=== PATIENT | female | born 1960 | race Caucasian/White ===

== ENCOUNTER → 2017-08-02 13:51 | Outpatient (CLI) | payer MEDICAID, SELFPAY ==
[2017-08-02 17:38] LABS: Absolute Neutrophil Count 4.1 X10^3/uL (2.0-7.7); Basophil# 0.01 X10^3/uL; Basophil% 0.2 % (0-1); Eosinophil# 0.07 X10^3/uL; Eosinophils% 1.1 % (0-5); Hematocrit 40.4 % (37-47); Hemoglobin 12.8 g/dl (12.0-15.0); Lymphocyte % 23.3 % (19-41); Mean Corp Hgb Conc 31.7 g/gl (32-36); Mean Corpuscular Hgb 29.4 pg (27.0-32.0); Mean Corpuscular Volume 92.7 fL (81-99); Mean Platelet Vol. 11.5 fl (6.2-12.0); Monocyte# 0.69 X10^3/uL; Monocyte% 10.7 % (0-10); Neutrophil # 4.14 X10^3/uL (2.7-7.7); Neutrophil % 64.4 % (47-70); Platelet Count 184 K/mm3 (150-450); RBC Distribution Width SD 47.8 fl (35.1-43.9); Red Blood Count 4.36 M/mm3 (4.2-5.4); White Blood Count 6.4 K/mm3 (4.4-11.0)
[2017-08-02 17:39] LABS: POSITIVE COUNT NO; POSITIVE DIFFERENTIAL NO; POSITIVE MORPHOLOGY NO
[2017-08-02 18:01] LABS: AST(SGOT) 19 U/L (15-37); Alanine Aminotransfer ALT/SGPT 30 U/L (13-56); Albumin, Serum 3.3 g/dL (3.2-5.0); Alkaline Phosphatase 55 U/L (45-117); Anion Gap 8 (5-15); BUN 13 mg/dL (7-18); BUN/Creat Ratio 13.3 RATIO (10-20); Calcium,Total 8.6 mg/dL (8.5-10.1); Chloride 103 mmol/L (98-107); Creatinine, Serum 0.98 mg/dL (0.55-1.02); EST Glomerular Filtration Rate 62 mL/min (>60); Est Glom Filt Rate - Afr Amer 75 mL/min (>60); Ferritin 29 ng/mL (8-252); Globulin 3.3 g/dL (2.2-4.2); Glucose 192 mg/dL (74-106); Iron 110 ug/dL (50-170); Iron Binding Capacity,Total 266 ug/dL (250-450); PERCENT IRON SATURATION 41.4 % (15.0-55.0); Potassium 3.6 mmol/L (3.5-5.1); Protein, Total 6.6 g/dL (6.4-8.2); Sodium Level 138 mmol/L (136-145); Thyroid Stim Hormone (TSH) 2.81 uIU/mL (0.358-3.74)
[2017-08-02 18:07] LABS: Hemoglobin A1c 6.3 % (4.2-6.3)
== END ==
PROVIDERS: Family Provider Family Medicine; PCP Family Medicine; Visit Provider Internal Medicine Endocrinology, Diabetes & Metabolism
DX: E10.65 Type 1 diabetes mellitus with hyperglycemia (principal); E61.1 Iron deficiency; E03.9 Hypothyroidism, unspecified
CPT/HCPCS: 36415; 80053; 82728; 83036; 83540; 83550; 84443; 85025

== ENCOUNTER → 2017-10-04 14:08 | Outpatient (CLI) | payer MEDICAID, SELFPAY ==
--- NOTE | 2017-10-04 14:18 | BD_ITS ---
STUDY: DUAL ENERGY X-RAY ABSORPTIOMETRY / DXA REASON FOR EXAM: Female, 57 years old. Bone density screening. TECHNIQUE: Bone Mineral Density (BMD) measurements of lumbar spine and bilateral hips were obtained. COMPARISON: None. FINDINGS: Lumbar Spine (L1-L4): g/cm2 (1.0) / T-score (-1.4) / Z-score (-0.4) Findings are suggestive of osteopenia with a moderate fracture risk. Right Femur Total: g/cm2 (0.863) / T-score (-1.1) / Z-score (-0.4) Right Femoral Neck: g/cm2 (0.705) / T-score (-2.4) / Z-score (-1.3) BD/Dexa Bone Density Study IMPRESSION: The patient is considered osteopenic as outlined below according to World [employer] Organization (WHO) criteria with a moderate fracture risk. Reference Information: The T-score is the number of standard deviations above or below the standard which is normal for young adults at their peak bone mineral density. The World Health Organization (WHO) interprets the T-scores as follows: Above -1 Normal bone density Between -1 and -2.5 Osteopenia Equal to / or below -2.5 Osteoporosis As a practical clinical guideline, osteopenia may be graded as follows: Mild -1 through -1.5 Moderate -1.6 through -2.0 Severe -2.1 through -2.4 The Z-score is the number of standard deviations above or below age-matched controls. A Z-score of less than -1.5 would be considered abnormal. References: 1. NIH Osteoporosis and Related Bone Diseases http://www.osteo.org 2. International Society for Clinical Densitometry http://www.iscd.org 3. National Osteoporosis Foundation http://www.nof.org Electronically Signed: Sherlyn Chavarria MD at 8:57 EDT , Service support ,
== END ==
PROVIDERS: Family Provider Family Medicine; PCP Family Medicine; Visit Provider Family Medicine
DX: Z78.0 Asymptomatic menopausal state (principal); S42.309A Unspecified fracture of shaft of humerus, unspecified arm, initial encounter for closed fracture; X58.XXXA Exposure to other specified factors, initial encounter; Y93.9 Activity, unspecified; Y92.9 Unspecified place or not applicable; Y99.9 Unspecified external cause status
CPT/HCPCS: 77080

== ENCOUNTER → 2017-10-31 10:39 | Outpatient (CLI) | payer MEDICAID, SELFPAY ==
[2017-10-31 12:43] LABS: ALB/GLOB Ratio 1.1 RATIO (0.9-2.4); AST(SGOT) 19 U/L (15-37); Alanine Aminotransfer ALT/SGPT 27 U/L (13-56); Albumin, Serum 3.6 g/dL (3.2-5.0); Alkaline Phosphatase 58 U/L (45-117); Anion Gap 10 (5-15); BUN 14 mg/dL (7-18); BUN/Creat Ratio 15.7 RATIO (10-20); Calcium,Total 8.8 mg/dL (8.5-10.1); Chloride 104 mmol/L (98-107); Cholesterol 189 mg/dL (200); Creatinine, Serum 0.89 mg/dL (0.55-1.02); EST Glomerular Filtration Rate 69 mL/min (>60); Est Glom Filt Rate - Afr Amer 84 mL/min (>60); Globulin 3.4 g/dL (2.2-4.2); Glucose 135 mg/dL (74-106); High Density Lipoprotein 56 mg/dL; Potassium 4.2 mmol/L (3.5-5.1); Sodium Level 142 mmol/L (136-145); Thyroid Stim Hormone (TSH) 5.45 uIU/mL (0.358-3.74); Triglycerides 74 mg/dL; Very Low Density Lipoprotein 15 mg/dL (5-40)
== END ==
PROVIDERS: Family Provider Family Medicine; PCP Family Medicine; Visit Provider Internal Medicine Endocrinology, Diabetes & Metabolism
DX: E10.65 Type 1 diabetes mellitus with hyperglycemia (principal)
CPT/HCPCS: 36415; 80053; 80061; 83036; 84443

== ENCOUNTER → 2017-12-06 13:47 | Outpatient (CLI) | payer MEDICAID, SELFPAY ==
--- NOTE | 2017-12-07 08:09 | LEAS ---
Arterial Study - Arterial Study Arterial Study: This is a 57-year-old female with a history of coronary artery disease, hypertension, diabetes mellitus, cerebrovascular accident, and peripheral arterial occlusive disease. The patient was brought to the noninvasive vascular laboratory at this time for the purpose of bilateral noninvasive lower extremity arterial assessment. Doppler signal assessment was used to evaluate the pulses at ankle level bilaterally. On the right, the posterior tibial pulse was monophasic. The right dorsalis pedis pulse was absent. On the left, the posterior tibial and dorsalis pedis pulses were biphasic. Segmental limb pressures were obtained bilaterally. The right ankle pressure, as determined by posterior tibial pulse, was measured at 74 mmHg. The right ankle pressure, as determined by dorsalis pedis pulse, was not determined. The right digital pressure was measured at 60 mmHg. The left ankle pressure, as determined by posterior tibial pulse, was measured at 79 mmHg. The left ankle pressure, as determined by dorsalis pedis pulse, was measured at 84 mmHg. The left digital pressure was measured at 71 mmHg. Pulse-volume recordings were obtained bilaterally. Waveform amplitudes appeared to be somewhat diminished at ankle and digital levels bilaterally. Resting ankle-brachial indices were calculated bilaterally. The resting right ankle-brachial index was calculated to be 0.52. The resting left ankle-brachial index was calculated to be 0.59. Digital-brachial indices were calculated bilaterally. The right digital-brachial index was calculated to be 0.42. The left digital-brachial index was calculated to be 0.50. Impression: Based upon the findings of this resting noninvasive lower extremity arterial study, there is evidence of moderate arterial occlusive disease in the lower extremities bilaterally. The degree of occlusive disease appears to be more severe in the right lower extremity. The right posterior tibial pulse was monophasic. The right dorsalis pedis pulses absent, suggesting moderate to severe arterial occlusive disease in the right lower extremity. Biphasic waveforms are noted at ankle level on the left. Of note, ankle-brachial indices and digital-brachial indices are moderately diminished bilaterally, consistent with moderate impairment of arterial flow at ankle and digital levels bilaterally. Based upon the findings of this study, the occlusive process appears to be due to arterial inflow disease, suggesting the occlusive process to be at the aorto-iliac level or the ilio-femoral level. In this regard, clinical correlation is advised.
--- NOTE | 2017-12-07 08:18 | LEAS_ITS ---
Arterial Study - Arterial Study Arterial Study: This is a 57-year-old female with a history of coronary artery disease, hypertension, diabetes mellitus, cerebrovascular accident, and peripheral arterial occlusive disease. The patient was brought to the noninvasive vascular laboratory at this time for the purpose of bilateral noninvasive lower extremity arterial assessment. Doppler signal assessment was used to evaluate the pulses at ankle level bilaterally. On the right, the posterior tibial pulse was monophasic. The right dorsalis pedis pulse was absent. On the left, the posterior tibial and dorsalis pedis pulses were biphasic. Segmental limb pressures were obtained bilaterally. The right ankle pressure, as determined by posterior tibial pulse, was measured at 74 mmHg. The right ankle pressure, as determined by dorsalis pedis pulse, was not determined. The right digital pressure was measured at 60 mmHg. The left ankle pressure, as determined by posterior tibial pulse, was measured at 79 mmHg. The left ankle pressure, as determined by dorsalis pedis pulse, was measured at 84 mmHg. The left digital pressure was measured at 71 mmHg. Pulse-volume recordings were obtained bilaterally. Waveform amplitudes appeared to be somewhat diminished at ankle and digital levels bilaterally. Resting ankle-brachial indices were calculated bilaterally. The resting right ankle-brachial index was calculated to be 0.52. The resting left ankle- brachial index was calculated to be 0.59. Digital-brachial indices were calculated bilaterally. The right digital- brachial index was calculated to be 0.42. The left digital-brachial index was calculated to be 0.50. Impression: Based upon the findings of this resting noninvasive lower extremity arterial study, there is evidence of moderate arterial occlusive disease in the lower extremities bilaterally. The degree of occlusive disease appears to be more severe in the right lower extremity. The right posterior tibial pulse was monophasic. The right dorsalis pedis pulses absent, suggesting moderate to severe arterial occlusive disease in the right lower extremity. Biphasic waveforms are noted at ankle level on the left. Of note, ankle-brachial indices and digital-brachial indices are moderately diminished bilaterally, consistent with moderate impairment of arterial flow at ankle and digital levels bilaterally. Based upon the findings of this study, the occlusive process appears to be due to arterial inflow disease, suggesting the occlusive process to be at the aorto-iliac level or the ilio-femoral level. In this regard, clinical correlation is advised.
== END ==
PROVIDERS: Family Provider Family Medicine; PCP Family Medicine; Visit Provider Family Medicine
DX: I73.9 Peripheral vascular disease, unspecified (principal)
CPT/HCPCS: 93922

== ENCOUNTER → 2018-01-23 07:27 | Outpatient (CLI) | payer MEDICAID, SELFPAY ==
--- NOTE | 2018-01-25 08:13 | LEAS ---
Arterial Study - Arterial Study Arterial Study: Date of scan 01/23/[address] Castañeda History patient with bilateral leg claudication. Interpretation: Right lower extremity that show pulsatile flow noted down at the ankle appears to have a biphasic waveformsignal noted with the DP. NADIA the PT 0.56. Digit brachial index 0.44. Left lower extremity in his appears to be more of a biphasic flow noted at the ankle with an NADIA of the PT 0.74 DP 0.71. Digit brachial index 0.5. Impression: 1. Moderate arterial occlusive disease in the right lower extremity and NADIA 0.56 and some small vessel disease with the digit brachial index 0.44. 2. Left lower extremity moderate arterial occlusive disease with an NADIA 0.74. And a digit brachial index 0.50. Further evaluation as clinically warranted
== END ==
PROVIDERS: Family Provider Family Medicine; PCP Family Medicine; Visit Provider Surgery Vascular Surgery
DX: I70.0 Atherosclerosis of aorta (principal); I77.1 Stricture of artery; I70.212 Atherosclerosis of native arteries of extremities with intermittent claudication, left leg; E10.65 Type 1 diabetes mellitus with hyperglycemia; I70.90 Unspecified atherosclerosis; M79.604 Pain in right leg; M79.605 Pain in left leg; M79.89 Other specified soft tissue disorders
CPT/HCPCS: 36415; 80053; 82043; 82570; 83036; 84443; 93922; 93926; 93971; 93978

== ENCOUNTER → 2018-01-23 09:18 | Outpatient (CLI) | payer MEDICAID, SELFPAY ==
[2018-01-23 12:57] LABS: Microalbumin,Random Urine < 5.0 mg/L (NO RANGE EST.)
[2018-01-23 13:02] LABS: Hemoglobin A1c 5.9 % (4.2-6.3)
[2018-01-23 13:25] LABS: ALB/GLOB Ratio 0.9 RATIO (0.9-2.4); AST(SGOT) 17 U/L (15-37); Alanine Aminotransfer ALT/SGPT 26 U/L (13-56); Albumin, Serum 3.5 g/dL (3.2-5.0); Alkaline Phosphatase 55 U/L (45-117); Anion Gap 10 (5-15); BUN 13 mg/dL (7-18); Calcium,Total 8.7 mg/dL (8.5-10.1); Chloride 104 mmol/L (98-107); EST Glomerular Filtration Rate 61 mL/min (>60); Est Glom Filt Rate - Afr Amer 74 mL/min (>60); Globulin 3.7 g/dL (2.2-4.2); Glucose 137 mg/dL (74-106); Potassium 3.9 mmol/L (3.5-5.1); Protein, Total 7.2 g/dL (6.4-8.2); Sodium Level 140 mmol/L (136-145); Thyroid Stim Hormone (TSH) 3.24 uIU/mL (0.358-3.74)
== END ==
PROVIDERS: Internal Medicine Endocrinology, Diabetes & Metabolism; Family Provider Family Medicine; PCP Family Medicine; Visit Provider Family Medicine
DX: I73.9 Peripheral vascular disease, unspecified (principal); I70.90 Unspecified atherosclerosis; E10.65 Type 1 diabetes mellitus with hyperglycemia
CPT/HCPCS: 36415; 80053; 82043; 82570; 83036; 84443

== ENCOUNTER → 2018-02-14 13:11 | Outpatient (CLI) | payer MEDICAID, SELFPAY | PROVIDERS: Family Provider Family Medicine; PCP Family Medicine; Visit Provider Surgery Vascular Surgery | DX: I70.213 Atherosclerosis of native arteries of extremities with intermittent claudication, bilateral legs (principal) | CPT/HCPCS: 75635; Q9967 ==

== ENCOUNTER → 2018-04-20 10:42 | Outpatient (CLI) | payer MEDICAID, SELFPAY ==
[2018-04-20 13:22] LABS: Hemoglobin A1c 5.9 % (4.2-6.3)
[2018-04-20 13:37] LABS: ALB/GLOB Ratio 1.1 RATIO (0.9-2.4); AST(SGOT) 11 U/L (15-37); Alanine Aminotransfer ALT/SGPT 23 U/L (13-56); Albumin, Serum 3.5 g/dL (3.2-5.0); Alkaline Phosphatase 59 U/L (45-117); Anion Gap 8 (5-15); BUN 20 mg/dL (7-18); BUN/Creat Ratio 21.6 RATIO (10-20); Calcium,Total 8.5 mg/dL (8.5-10.1); Chloride 103 mmol/L (98-107); Cholesterol 150 mg/dL (200); Creatinine, Serum 0.93 mg/dL (0.55-1.02); EST Glomerular Filtration Rate 66 mL/min (>60); Est Glom Filt Rate - Afr Amer 80 mL/min (>60); Globulin 3.2 g/dL (2.2-4.2); Glucose 99 mg/dL (74-106); High Density Lipoprotein 59 mg/dL; Potassium 4.1 mmol/L (3.5-5.1); Protein, Total 6.7 g/dL (6.4-8.2); Sodium Level 141 mmol/L (136-145); Triglycerides 63 mg/dL; Very Low Density Lipoprotein 13 mg/dL (5-40)
== END ==
PROVIDERS: Family Provider Family Medicine; PCP Family Medicine; Visit Provider Internal Medicine Endocrinology, Diabetes & Metabolism
DX: E10.65 Type 1 diabetes mellitus with hyperglycemia (principal)
CPT/HCPCS: 36415; 80053; 80061; 83036; 84443

== ENCOUNTER → 2018-04-28 11:50 | Outpatient (CLI) | payer MEDICAID, SELFPAY ==
--- NOTE | 2018-04-28 11:53 | BI_ITS ---
MAMMOGRAPHY - BILATERAL DIAGNOSTIC REASON FOR EXAM: Female, 57 years old. Palpable abnormality at 11:00 position of the right breast. PERTINENT HISTORY: Non-contributory. TECHNIQUE: Digital bilateral breast miki (3D mammographic acquisition) in the CC and MLO projections. 2-D mediolateral oblique (MLO) and craniocaudad (CC) views of both breasts were obtained. CAD: Full Field Digital Mammography with Computer Added Detection was performed. COMPARISON: No comparison mammograms available at this time. If any prior films become available, an addendum to this report can be generated. FINDINGS: Breast Composition: The breasts are heterogeneously dense, which may obscure small masses. There are no dominant masses or suspicious calcifications. No other significant abnormalities are identified. BI/DIAG MAMM W/CAD, BILAT IMPRESSION: Negative diagnostic mammogram. With the patient's history of a papilloma and mildly in the right breast, correlation with ultrasound is recommended. ASSESSMENT CATEGORY: BIRADS Category 0: Incomplete. Need additional imaging evaluation. A letter regarding these results will be sent to the patient by the facility within 30 days. Approximately 10% of breast cancers are not detected by mammography. A normal mammogram should not delay biopsy of a clinically suspicious abnormality. Electronically Signed: Walker Ceballos MD at 14:24 EST Tel [phone], Service support ,
== END ==
PROVIDERS: Family Provider Family Medicine; PCP Family Medicine; Referring Provider Family Medicine; Visit Provider Family Medicine
DX: N63.11 Unspecified lump in the right breast, upper outer quadrant (principal)
CPT/HCPCS: 77062; 77066; G0279

== ENCOUNTER → 2018-05-03 09:45 | Outpatient (CLI) | payer MEDICAID, SELFPAY ==
--- NOTE | 2018-05-03 09:47 | US_ITS ---
STUDY: ULTRASOUND BREAST - RIGHT REASON FOR EXAM: Female, 57 years old. Palpable lump in the right breast. TECHNIQUE: Axial and longitudinal images of the RIGHT breast were performed with a high resolution ultrasound transducer. COMPARISON: Comparison is made with prior mammogram dated April 28, 2018. FINDINGS: RIGHT Breast: There is a 4 mm x 3 mm x 4 mm cyst at the 11:00 position breast at 2 cm from the nipple. There is also evidence of a focally dilated duct at the 10:00 position breast at 2 cm from the nipple. US/Breast Limited Unilateral IMPRESSION: 4 mm x 3 mm x 4 mm cyst at the 11:00 position of the breast at 2 some some the nipple. Dilated ducts. ASSESSMENT CATEGORY: BIRADS Category 2: Benign. A letter regarding these results will be sent to the patient by the facility within 30 days. Electronically Signed: Walker Ceballos MD at 11:21 EST Tel [phone], Service support ,
== END ==
PROVIDERS: Family Provider Family Medicine; PCP Family Medicine; Referring Provider Family Medicine; Visit Provider Family Medicine
DX: R92.8 Other abnormal and inconclusive findings on diagnostic imaging of breast (principal); N63.10 Unspecified lump in the right breast, unspecified quadrant
CPT/HCPCS: 76642

== ENCOUNTER → 2018-09-05 08:43 | Outpatient (CLI) | payer MEDICAID, SELFPAY ==
[2018-05-03 12:51] VITALS: BMI 29.8
--- NOTE | 2018-09-05 08:47 | ART_ITS ---
Reason For Study: Atherosclerosis Procedure A bilateral lower extremity continuous wave Doppler with analog waveform analysis and ankle brachial indexes. Left Segmental Pressures Left brachial= 122mmHg. Left posterior tibial artery = 163mmHg. Left dorsalis pedis artery = 149mmHg. Left digit = 111 mmHg. The left dorsalis pedis waveforms are biphasic. The left posterior tibial artery waveforms are triphasic. Right Segmental Pressures Right brachial= 138mmHg. Right posterior tibial artery = 138mmHg. Right dorsalis pedis artery = 122mmHg. Right digit = 102 mmHg. The right dorsalis pedis waveforms are biphasic. The right posterior tibial artery waveforms are triphasic. Indices The right ankle brachial index by the dorsalis pedis is .88. The right ankle brachial index by the posterior tibial artery is 1.0. The right digital-brachial index is .74. The left ankle brachial index by the dorsalis pedis is 1.1. The left ankle brachial index by the posterior tibial artery is 1.2. The left digital-brachial index is .80. Interpretation Summary 1. bilaterl no significant occlussive disease noted at rest with triphasic flow and rex 1.0/1.1. Ordering Physician: Jed Castañeda Referring Physician: Jed Castañeda Performed By: Maryjane Woody [facility]
--- NOTE | 2018-09-05 08:47 | AAVD_ITS ---
Reason For Study: Aorto-iliac stenosis Aorta Measurements Aorta Doppler Measurements Proximal aorta measures1.6 x 1.6cm. in cross- Peak systolic flow velocities within the proximal sectional axis. aorta measure 82.1 cm/sec. Proximal aorta measures1.5cm. in longitudinal Peak systolic flow velocities within the mid aorta axis. measure 114 cm/sec. Mid aorta measures1.1 x 1.1cm. in cross-sectional Peak systolic flow velocities within the distal axis. aorta measure 110 cm/sec. Mid aorta measures1.0cm. in longitudinal axis. Distal aorta measures1.1 x 1.1cm. in cross- sectional axis. Distal aorta measures1.1cm. in longitudinal axis. Left Iliac Artery Left iliac artery measures .76 cm. in the longitudinal axis. Left iliac artery measures .72 x .66 cm. in the cross-sectional axis. Peak systolic velocity in the left iliac artery measures 142.0 cm/sec. Right Iliac Artery Right iliac artery measures .66 cm. in the longitudinal axis. Right iliac artery measures .69 x .75 cm. in the cross-sectional axis. Peak systolic velocity in the right iliac artery measures 92.1 cm/sec. Procedure Aorta IVC Iliac vasculature or bypass grafts [id number]. Exam performed in department. Interpretation Summary 1. No evidence aortoiliac aneurysm or stenosis. Ordering Physician: Jed Castañeda Referring Physician: Jed Castañeda Performed By: Maryjane Woody RVT
== END ==
PROVIDERS: Family Provider Family Medicine; PCP Family Medicine; Referring Provider Surgery Vascular Surgery; Visit Provider Surgery Vascular Surgery
DX: I70.213 Atherosclerosis of native arteries of extremities with intermittent claudication, bilateral legs (principal); I11.9 Hypertensive heart disease without heart failure; E07.9 Disorder of thyroid, unspecified; D64.9 Anemia, unspecified; E78.70 Disorder of bile acid and cholesterol metabolism, unspecified; F41.9 Anxiety disorder, unspecified; I25.2 Old myocardial infarction; Z86.73 Personal history of transient ischemic attack (TIA), and cerebral infarction without residual deficits
CPT/HCPCS: 93922; 93978

== ENCOUNTER → 2018-10-10 09:49 | Outpatient (CLI) | payer MEDICAID, SELFPAY ==
[2018-05-03 12:51] VITALS: BMI 29.8
[2018-10-10 12:40] LABS: ALB/GLOB Ratio 1.2 RATIO (0.9-2.4); AST(SGOT) 14 U/L (15-37); Alanine Aminotransfer ALT/SGPT 21 U/L (13-56); Albumin, Serum 3.6 g/dL (3.2-5.0); Alkaline Phosphatase 70 U/L (45-117); Anion Gap 6 (5-15); BUN 19 mg/dL (7-18); Calcium,Total 8.6 mg/dL (8.5-10.1); Chloride 105 mmol/L (98-107); EST Glomerular Filtration Rate 61 mL/min (>60); Est Glom Filt Rate - Afr Amer 74 mL/min (>60); Glucose 123 mg/dL (74-106); Potassium 3.9 mmol/L (3.5-5.1); Protein, Total 6.6 g/dL (6.4-8.2); Sodium Level 139 mmol/L (136-145); T4 Free Direct 1.25 ng/dL (0.76-1.46); Thyroid Stim Hormone (TSH) 0.67 uIU/mL (0.358-3.74)
[2018-10-10 14:05] LABS: Hemoglobin A1c 5.9 % (4.2-6.3)
== END ==
PROVIDERS: Family Provider Family Medicine; PCP Family Medicine; Referring Provider Family Medicine; Visit Provider Internal Medicine Endocrinology, Diabetes & Metabolism
DX: E03.9 Hypothyroidism, unspecified (principal); E10.65 Type 1 diabetes mellitus with hyperglycemia
CPT/HCPCS: 36415; 80053; 83036; 84439; 84443

== ENCOUNTER → 2019-02-22 10:30 | Outpatient (CLI) | payer MEDICAID, SELFPAY ==
[2018-05-03 12:51] VITALS: BMI 29.8
[2019-02-22 13:07] LABS: ALB/GLOB Ratio 1.1 RATIO (0.9-2.4); AST(SGOT) 17 U/L (15-37); Alanine Aminotransfer ALT/SGPT 27 U/L (13-56); Albumin, Serum 3.4 g/dL (3.2-5.0); Alkaline Phosphatase 58 U/L (45-117); Anion Gap 6 (5-15); BUN 17 mg/dL (7-18); BUN/Creat Ratio 16.8 RATIO (10-20); Calcium,Total 8.6 mg/dL (8.5-10.1); Chloride 109 mmol/L (98-107); Cholesterol 156 mg/dL (200); Creatinine, Serum 1.01 mg/dL (0.55-1.02); EST Glomerular Filtration Rate 60 mL/min (>60); Est Glom Filt Rate - Afr Amer 72 mL/min (>60); Globulin 3.2 g/dL (2.2-4.2); Glucose 137 mg/dL (74-106); High Density Lipoprotein 66 mg/dL; Potassium 4.9 mmol/L (3.5-5.1); Protein, Total 6.6 g/dL (6.4-8.2); Sodium Level 143 mmol/L (136-145); T4 Free Direct 1.38 ng/dL (0.76-1.46); Thyroid Stim Hormone (TSH) 0.58 uIU/mL (0.358-3.74); Triglycerides 60 mg/dL; Very Low Density Lipoprotein 12 mg/dL (5-40)
== END ==
PROVIDERS: Family Provider Family Medicine; PCP Family Medicine; Referring Provider Family Medicine; Visit Provider Internal Medicine Endocrinology, Diabetes & Metabolism
DX: E10.65 Type 1 diabetes mellitus with hyperglycemia (principal); E03.9 Hypothyroidism, unspecified
CPT/HCPCS: 36415; 80053; 80061; 83036; 84439; 84443

== ENCOUNTER → 2019-05-01 12:47 | Outpatient (CLI) | payer MEDICAID, SELFPAY ==
[2018-05-03 12:51] VITALS: BMI 29.8
--- NOTE | 2019-05-01 12:51 | RAD_ITS ---
STUDY: X-RAY - PARANASAL SINUSES REASON FOR EXAM: Female, 58 years old. Sinus pain TECHNIQUE: 3 view(s) of the paranasal sinuses were obtained. COMPARISON: None. FINDINGS: Normal visualized frontal, maxillary, ethmoidal and sphenoid sinuses. Normal visualized facial bones. The soft tissue structures are unremarkable. RAD/Sinuses min 3 Views IMPRESSION: Normal x-rays of the paranasal sinuses. Electronically Signed: Lamin Reich MD at 17:05 EST , Service support ,
[2019-05-01 13:55] LABS: Absolute Lymphocyte Count 1.18 X10^3/uL (0.83-4.51); Absolute Neutrophil Count 4.3 X10^3/uL (2.0-7.7); Basophil# 0.02 X10^3/uL; Basophil% 0.3 % (0-1); Eosinophil# 0.12 X10^3/uL; Eosinophils% 1.9 % (0-5); Hematocrit 40.2 % (37-47); Lymphocyte # 1.18 X10^3/ul (4.0); Lymphocyte % 18.5 % (19-41); Mean Corp Hgb Conc 32.3 g/dL (32-36); Mean Corpuscular Hgb 30.7 pg (27.0-32.0); Mean Platelet Vol. 10.6 fl (6.2-12.0); Monocyte# 0.72 X10^3/uL; Monocyte% 11.3 % (0-10); NRBC Flagged by Analyzer 0 % (0-5); Neutrophil # 4.31 X10^3/uL (2.7-7.7); Neutrophil % 67.5 % (47-70); Platelet Count 223 K/mm3 (150-450); RBC Distribution Width CV 12.9 % (11.6-14.6); RBC Distribution Width SD 44.9 fl (35.1-43.9); Red Blood Count 4.23 M/mm3 (4.2-5.4); White Blood Count 6.4 K/mm3 (4.4-11.0)
[2019-05-01 14:02] LABS: Erythrocyte Sedimentation Rate 3 mm/hr (0-30)
[2019-05-01 14:12] LABS: ALB/GLOB Ratio 1.1 RATIO (0.9-2.4); AST(SGOT) 17 U/L (15-37); Alanine Aminotransfer ALT/SGPT 30 U/L (13-56); Albumin, Serum 3.7 g/dL (3.2-5.0); Alkaline Phosphatase 64 U/L (45-117); Anion Gap 7 (5-15); BUN 18 mg/dL (7-18); BUN/Creat Ratio 18.4 RATIO (10-20); Calcium,Total 8.5 mg/dL (8.5-10.1); Chloride 106 mmol/L (98-107); Creatinine, Serum 0.98 mg/dL (0.55-1.02); EST Glomerular Filtration Rate 62 mL/min (>60); Est Glom Filt Rate - Afr Amer 75 mL/min (>60); Globulin 3.4 g/dL (2.2-4.2); Glucose 118 mg/dL (74-106); Potassium 3.7 mmol/L (3.5-5.1); Protein, Total 7.1 g/dL (6.4-8.2); Sodium Level 141 mmol/L (136-145); Thyroid Stim Hormone (TSH) 0.57 uIU/mL (0.358-3.74)
== END ==
PROVIDERS: Family Provider Family Medicine; PCP Family Medicine; Referring Provider Family Medicine; Visit Provider Family Medicine
DX: J32.9 Chronic sinusitis, unspecified (principal); R53.81 Other malaise; R53.83 Other fatigue
CPT/HCPCS: 36415; 70220; 80053; 83036; 84443; 85025; 85652

== ENCOUNTER → 2019-05-08 11:39 | Outpatient (CLI) | payer MEDICAID, SELFPAY ==
[2018-05-03 12:51] VITALS: BMI 29.8
[2019-05-08 16:02] LABS: Internal QC Validated? YES +Cl - CLEAR BKGD; Monotest Negative (Negative)
[2019-05-08 16:10] LABS: ALB/GLOB Ratio 1.1 RATIO (0.9-2.4); AST(SGOT) 14 U/L (15-37); Alanine Aminotransfer ALT/SGPT 28 U/L (13-56); Albumin, Serum 3.7 g/dL (3.2-5.0); Alkaline Phosphatase 72 U/L (45-117); Anion Gap 8 (5-15); BUN 16 mg/dL (7-18); BUN/Creat Ratio 14.4 RATIO (10-20); Chloride 102 mmol/L (98-107); Creatinine, Serum 1.11 mg/dL (0.55-1.02); EST Glomerular Filtration Rate 54 mL/min (>60); Est Glom Filt Rate - Afr Amer 65 mL/min (>60); Globulin 3.3 g/dL (2.2-4.2); Glucose 156 mg/dL (74-106); Potassium 4.1 mmol/L (3.5-5.1); Sodium Level 137 mmol/L (136-145)
[2019-05-08 17:03] LABS: Erythrocyte Sedimentation Rate 4 mm/hr (0-30)
[2019-05-13 13:01] LABS: EBV Acute VCA IgM < 36.0 U/mL (0.0-35.9); EBV Early Antigen IgG <9.0 U/mL (0.0-8.9); EBV Nuclear Antigen IgG < 18.0 U/mL (0.0-17.9); Immunoglobulin E 3 IU/mL (6-495)
== END ==
PROVIDERS: Family Provider Family Medicine; PCP Family Medicine; Referring Provider Family Medicine; Visit Provider Family Medicine
DX: R53.83 Other fatigue (principal)
CPT/HCPCS: 36415; 80053; 82785; 85652; 86308; 86663; 86664; 86665

== ENCOUNTER → 2019-06-08 12:38 | Outpatient (CLI) | payer MEDICAID, SELFPAY ==
[2018-05-03 12:51] VITALS: BMI 29.8
--- NOTE | 2019-06-08 12:41 | ART_ITS ---
Reason For Study: Aortoiliac occlusive disease Procedure A bilateral lower extremity continuous wave Doppler with analog waveform analysis and ankle brachial indexes. Left Segmental Pressures Left brachial= 163mmHg. Left posterior tibial artery = 187mmHg. Left dorsalis pedis artery = 175mmHg. Left digit = 129 mmHg. Right Segmental Pressures Right brachial= 167mmHg. Right posterior tibial artery = 116mmHg. Right dorsalis pedis artery = 86mmHg. Right digit = 82 mmHg. Indices The right ankle brachial index by the posterior tibial artery is 0.69. The right ankle brachial index by the dorsalis pedis is 0.51. The right digital-brachial index is 0.49. The left ankle brachial index by the posterior tibial artery is 1.12. The left ankle brachial index by the dorsalis pedis is 1.05. The left digital-brachial index is 0.77. Interpretation Summary 1. right moderate disease wiht biphasic flow and NADIA 0.69 2. Left normal at rest with triphasic flow and NADIA 1.12. Ordering Physician: Jed Castañeda Referring Physician: Jed Castañeda Performed By: Jessica Ramey RDCS/RVT
== END ==
PROVIDERS: Family Provider Family Medicine; PCP Family Medicine; Referring Provider Surgery Vascular Surgery; Visit Provider Surgery Vascular Surgery
DX: I70.213 Atherosclerosis of native arteries of extremities with intermittent claudication, bilateral legs (principal); I74.09 Other arterial embolism and thrombosis of abdominal aorta; I11.9 Hypertensive heart disease without heart failure; I25.2 Old myocardial infarction; E07.9 Disorder of thyroid, unspecified; E78.70 Disorder of bile acid and cholesterol metabolism, unspecified; F41.9 Anxiety disorder, unspecified; D64.9 Anemia, unspecified; Z86.73 Personal history of transient ischemic attack (TIA), and cerebral infarction without residual deficits
CPT/HCPCS: 93922

== ENCOUNTER → 2019-10-31 12:14 | Outpatient (CLI) | payer MEDICAID, SELFPAY ==
[2018-05-03 12:51] VITALS: BMI 29.8
--- NOTE | 2019-10-31 12:16 | BI_ITS ---
MAMMOGRAPHY - BILATERAL SCREENING REASON FOR EXAM: Female, 59 years old. Routine annual screening examination. PERTINENT HISTORY: Non-contributory. TECHNIQUE: Digital bilateral breast kaci (3D mammographic acquisition) in the CC and MLO projections. 2-D mediolateral oblique (MLO) and craniocaudad (CC) views of both breasts were obtained. CAD: Full Field Digital Mammography with Computer Added Detection was performed. COMPARISON: Comparison is made with prior examination dated April 28, 2018. FINDINGS: Breast Composition: The breasts are heterogeneously dense, which may obscure small masses. There are no dominant masses or suspicious calcifications. Stable scattered calcifications in both breasts without evidence of cluster. No other significant abnormalities are identified. There has been no significant change since the prior study. BI/SCREEN MAMM (CAD) W/KACI BILAT IMPRESSION: Stable bilateral screening mammogram. Yearly follow-up mammogram recommended. (A) ASSESSMENT CATEGORY: BIRADS Category 2: Benign. A letter regarding these results will be sent to the patient by the facility within 30 days. Approximately 10% of breast cancers are not detected by mammography. A normal mammogram should not delay biopsy of a clinically suspicious abnormality. [id number] Electronically Signed: Walker Ceballos, at 9:59 EDT , Service support ,
== END ==
PROVIDERS: PCP Family Medicine; Referring Provider Family Medicine; Visit Provider Family Medicine
DX: Z12.31 Encounter for screening mammogram for malignant neoplasm of breast (principal)
CPT/HCPCS: 77063; 77067

== ENCOUNTER → 2019-11-12 10:19 | Outpatient (CLI) | payer MEDICAID, SELFPAY ==
[2019-11-12 10:11] VITALS: BMI 29.8
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
== END ==
PROVIDERS: PCP Family Medicine; Referring Provider Orthopaedic Surgery; Visit Provider Orthopaedic Surgery
DX: M25.511 Pain in right shoulder (principal)
CPT/HCPCS: 73030

== ENCOUNTER → 2019-12-10 13:44 | Outpatient (CLI) | payer MEDICAID, SELFPAY ==
[2019-12-10 07:49] VITALS: BMI 29.8
--- NOTE | 2019-12-10 13:45 | RAD_ITS ---
STUDY: X-RAY - RIGHT SHOULDER REASON FOR EXAM: Female, 59 years old. FX FOLLOW UP X 1 MONTH TECHNIQUE: 3 view(s) of the shoulder. COMPARISON: None. FINDINGS: Normal glenohumeral articulation. Normal acromioclavicular joint. Normal acromion. Healing impacted fracture the humeral neck with callus formation. The soft tissue structures are unremarkable. Normal visualized pulmonary apex. RAD/Shoulder min 2 Views IMPRESSION: Healing impacted humeral neck fracture. Electronically Signed: Sae Courtney MD at 14:29 EDT Tel , Service support ,
== END ==
PROVIDERS: PCP Family Medicine; Referring Provider Orthopaedic Surgery; Visit Provider Orthopaedic Surgery
DX: S42.309A Unspecified fracture of shaft of humerus, unspecified arm, initial encounter for closed fracture (principal); X58.XXXA Exposure to other specified factors, initial encounter; Y93.9 Activity, unspecified; Y92.9 Unspecified place or not applicable; Y99.9 Unspecified external cause status
CPT/HCPCS: 73030

== ENCOUNTER → 2020-01-04 10:27 | Outpatient (CLI) | payer MEDICAID, SELFPAY ==
[2019-12-10 07:49] VITALS: BMI 29.8
[2020-01-04 12:23] LABS: Absolute Neutrophil Count 3.3 X10^3/uL (2.0-7.7); Hematocrit 41.3 % (37-47); Hemoglobin 13.2 g/dL (12.0-15.0); Lymphocyte % 25.1 % (19-41); Mean Corpuscular Hgb 30.1 pg (27.0-32.0); Mean Corpuscular Volume 94.3 fL (81-99); Mean Platelet Vol. 11.5 fl (6.2-12.0); Monocyte# 0.59 X10^3/uL; Monocyte% 11.4 % (0-10); NRBC Flagged by Analyzer 0 % (0-5); Neutrophil # 3.25 X10^3/uL (2.7-7.7); Neutrophil % 62.9 % (47-70); Platelet Count 177 K/mm3 (150-450); RBC Distribution Width CV 12.5 % (11.6-14.6); RBC Distribution Width SD 43.2 fl (35.1-43.9); Red Blood Count 4.38 M/mm3 (4.2-5.4); White Blood Count 5.2 K/mm3 (4.4-11.0)
[2020-01-04 12:46] LABS: Vitamin D,25 Hydroxy 96.7 ng/mL
[2020-01-04 12:47] LABS: Hemoglobin A1c 5.7 % (3.8-5.6)
[2020-01-04 13:13] LABS: ALB/GLOB Ratio 1.2 RATIO (0.9-2.4); AST(SGOT) 15 U/L (15-37); Alanine Aminotransfer ALT/SGPT 22 U/L (13-56); Albumin, Serum 3.5 g/dL (3.2-5.0); Alkaline Phosphatase 77 U/L (45-117); Anion Gap 3 (5-15); BUN 14 mg/dL (7-18); BUN/Creat Ratio 17.2 RATIO (10-20); Calcium,Total 8.7 mg/dL (8.5-10.1); Chloride 109 mmol/L (98-107); Cholesterol 143 mg/dL (200); Creatinine, Serum 0.81 mg/dL (0.55-1.02); EST Glomerular Filtration Rate 76 mL/min (>60); Est Glom Filt Rate - Afr Amer 92 mL/min (>60); Ferritin 28 ng/mL (8-252); Glucose 111 mg/dL (74-106); High Density Lipoprotein 60 mg/dL; Potassium 4.4 mmol/L (3.5-5.1); Protein, Total 6.5 g/dL (6.4-8.2); Sodium Level 140 mmol/L (136-145); Triglycerides 56 mg/dL; Very Low Density Lipoprotein 11 mg/dL (5-40)
[2020-01-04 13:19] LABS: Microalbumin,Random Urine 12.2 mg/L (NO RANGE EST.); Microalbumin:Creatinine Ratio 6.9 mg/g CRE (<30 mg/g CRE)
[2020-01-07 16:08] LABS: Endomysial Antibody IgA Negative (Negative)
[2020-01-08 13:41] LABS: Immunoglobulin A < 5 mg/dL (87-352); t-Transglutaminase IgA <2 U/mL (0-3)
[2020-01-09 03:07] LABS: Beef <0.10 kU/L (Class 0); Corn <0.10 kU/L (Class 0); Egg, Whole <0.10 kU/L (Class 0); Milk (Cow) <0.10 kU/L (Class 0); Peanut <0.10 kU/L (Class 0); Pork <0.10 kU/L (Class 0); Soybean <0.10 kU/L (Class 0); Wheat <0.10 kU/L (Class 0)
[2020-01-09 13:26] LABS: Chocolate <0.10 kU/L (Class 0)
== END ==
PROVIDERS: PCP Family Medicine; Referring Provider Family Medicine; Visit Provider Family Medicine
DX: E10.65 Type 1 diabetes mellitus with hyperglycemia (principal); D64.9 Anemia, unspecified; R53.83 Other fatigue; M85.80 Other specified disorders of bone density and structure, unspecified site; I10 Essential (primary) hypertension; E78.5 Hyperlipidemia, unspecified; E03.9 Hypothyroidism, unspecified; E55.9 Vitamin D deficiency, unspecified; Z96.41 Presence of insulin pump (external) (internal)
CPT/HCPCS: 36415; 80053; 80061; 82043; 82306; 82570; 82728; 82746; 82784; 83036; 83516; 83970; 84439; 84443; 85025; 86003; 86005; 86255

== ENCOUNTER → 2020-06-18 16:01 | Outpatient (CLI) | payer MEDICAID, SELFPAY ==
[2019-12-10 07:49] VITALS: BMI 29.8
[2020-06-18 17:48] LABS: Absolute Lymphocyte Count 1.09 X10^3/uL (0.83-4.51); Absolute Neutrophil Count 4.4 X10^3/uL (2.0-7.7); Hematocrit 39.9 % (37-47); Hemoglobin 12.6 g/dL (12.0-15.0); Lymphocyte # 1.09 X10^3/ul (4.0); Lymphocyte % 17.8 % (19-41); Mean Corp Hgb Conc 31.6 g/dL (32-36); Mean Corpuscular Hgb 29.9 pg (27.0-32.0); Mean Corpuscular Volume 94.5 fL (81-99); Mean Platelet Vol. 10.9 fl (6.2-12.0); Monocyte% 9.8 % (0-10); NRBC Flagged by Analyzer 0 % (0-5); Neutrophil % 71.9 % (47-70); Platelet Count 182 K/mm3 (150-450); RBC Distribution Width CV 13.1 % (11.6-14.6); RBC Distribution Width SD 45.7 fl (35.1-43.9); Red Blood Count 4.22 M/mm3 (4.2-5.4); White Blood Count 6.1 K/mm3 (4.4-11.0)
[2020-06-18 18:12] LABS: Erythrocyte Sedimentation Rate 5 mm/hr (0-30)
[2020-06-18 18:18] LABS: ALB/GLOB Ratio 1.3 RATIO (0.9-2.4); AST(SGOT) 13 U/L (15-37); Alanine Aminotransfer ALT/SGPT 21 U/L (13-56); Albumin, Serum 3.6 g/dL (3.2-5.0); Alkaline Phosphatase 64 U/L (45-117); Anion Gap 8 (5-15); BUN 14 mg/dL (7-18); BUN/Creat Ratio 14.6 RATIO (10-20); CRP < 2.90 mg/L (0.0-3.0); Calcium,Total 8.6 mg/dL (8.5-10.1); Chloride 103 mmol/L (98-107); Creatinine, Serum 0.96 mg/dL (0.55-1.02); EST Glomerular Filtration Rate 63 mL/min (>60); Est Glom Filt Rate - Afr Amer 77 mL/min (>60); Globulin 2.8 g/dL (2.2-4.2); Glucose 199 mg/dL (74-106); Potassium 3.7 mmol/L (3.5-5.1); Protein, Total 6.4 g/dL (6.4-8.2); Sodium Level 137 mmol/L (136-145)
== END ==
PROVIDERS: PCP Family Medicine; Referring Provider Family Medicine; Visit Provider Family Medicine
DX: M54.9 Dorsalgia, unspecified (principal)
CPT/HCPCS: 36415; 80053; 85025; 85652; 86140

== ENCOUNTER 2020-08-06 15:30 | Outpatient (RCR) | payer MEDICAID, SELFPAY ==
[2019-12-10 07:49] VITALS: BMI 29.8
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
--- NOTE | 2020-06-27 11:59 | HP.OTEVAL ---
Patient's Visit Information JADE FERRELL is a 59 year old F, referred to Occupational Therapy by Dr. Iftikhar Carpenter MD, with a diagnosis of CVA. Date of Evaluation: 06/25/20 Occupational Therapist: Liz Bro, ISAAC/Artem, CHT - Subjective this 59 year old female was seen for OT eval with dx of CVA. pt states she went to her family dr. because her back and hip pain. Pt states she feels her PT eval went well. Pt states her back and left hip pain.. pt states PT stated her right leg is longer than left so she is gooing to Chiropractor Tuesday. pt states she has a bace she wears at night but she is afraid it by not be fitting right. pt would like to know how she can decrease her tone to improve her hand function. - ADLs Comments: pt lives in apt. pt is CHEVY with ADLs as she did not get right UE use back from her stroke in 2011 and 2013. pt uses britney walker, AFO on right ankle, and. pt is getting right UE botox 400 units - Objective pt demo with right wrist flextion contracture - ROM ROM Comments: pt demo with limited functional ROM of right UE shoulder flex is to 80* and elbow ROM at -10/130, pt as min forearm supination/pronation- and not functional digit ROM- this limits pts ind. with ADLs and IADLs - Movement Muscle Tone: mod in UE - Quick DASH-Disab of Arm,Shoulder& Hand Quick DASH Score: 72.7250 - Goals Goal:: Pt will demo full right elbow ROM increasing ind. with ADLs and decrease pts tone to limit skin break down by d/c Goal:: pt will demo understanding of using orthosis to decrease tone and limit skin break down by d/c. pt will demo ind doffing/donning orthosis by d/c. pt will demo a reduction in tone in wrist/fingers to min-mod to decrease flexion contracture risk and skin break down. - Rehabilitation General Assessment: Pt demo with increase tone of right UE and contracture of right wrist/digits/ and initiation of right elbow contracture increasing risk of skin break down. Pt would benefit from skilled OT services to ed. on ex to decrease tone, fitting for new right hand brace.along with increase use of right UE with ADLs and IADLs using right UE as assistive arm. pt demo understanding and agree to POC. Rehabilitation Potential: Fair - Anticipated Interventions A/AAROM/PROM, Orthoses, Ergonomic Education, Neuro Reeducation, ADL Training, Education re assistive Equipment - Visit Plan Frequency: 1-2x /Week Duration: 4 Weeks TEXT: Thank you for the opportunity to evaluate your patient. For Medicare and Medicare HMO plans, please review the plan of care and approve it. It will need to be FAXED BACK to us at [phone] for Medicare purposes. Please let me know if there are questions or concerns regarding this plan of care. Physician Signature: Date:
--- NOTE | 2020-08-06 15:58 | HP.PTDCSUM ---
It has been my pleasure to treat JADE FERRELL referred by Dr. Iftikhar Carpenter MD, with the diagnosis of LLB PAIN AND SCARO-ILLIAC PAIN for a total of 4 visit(s). Discharge Date: 08/06/20 Please see the following information for a summary of their discharge status. Subjective: Patient states that she is doing well. Reports she has not been to therapy much becuase of the weather and an episode of shingles. Seen chiropractor which also helped % Improvement: 100 Objective/Function: LE MMT: L hip flexion 4/5, quad 5/5, hams 4+/5, DF 5/5, PF 5/5. R hip flexion 3+/5, quad 3+/5, hams 3+/5, DF 3+/5, PF 3+/5. Lumbar AROM: flexion 50%, ext 50%, sidebending 50%, rotation 25%. Updated HEP. Patient demonstrated improvements with lumbar AROM, pain levels and LE strength. Goal 1:: Patient to be I with HEP Goal Progress: Goal Met Goal 2:: Patient to decrease Left LBB by 40 % or > to improve function with walking and standing Goal Progress: Progressing Goal 3:: Patient to improve lumbar ROM for function of recovery Goal Progress: Progressing Goal 4:: Patient to improve back owestry score by 5 points or > to imporove QOL. Goal Progress: Goal Met Plan: D/C to HEP. Discharge Comments: D/C to HEP. If there are questions or concerns regarding this patient's physical therapy, please feel free to call me at [phone]. Thank you for the referral of this patient. Sincerely, Dax Rendon, PT, Cert MDT, OCS
== END 2020-08-06 19:00 | disposition home or self-care (01) ==
LOC: PT 15:30
PROVIDERS: PCP Family Medicine; Referring Provider Family Medicine; Visit Provider Family Medicine
DX: M54.5 Low back pain (principal); Z86.73 Personal history of transient ischemic attack (TIA), and cerebral infarction without residual deficits
CPT/HCPCS: 97110; 97112; 97140; 97162; 97166; 97530

== ENCOUNTER → 2020-09-24 08:46 | Outpatient (CLI) | payer MEDICAID, SELFPAY ==
[2019-12-10 07:49] VITALS: BMI 29.8
--- NOTE | 2020-09-24 08:54 | ART_ITS ---
Reason For Study: Atherosclerosis Procedure A bilateral lower extremity continuous wave Doppler with analog waveform analysis and ankle brachial indexes. Left Segmental Pressures Left brachial= 159mmHg. Left posterior tibial artery = 177mmHg. Left dorsalis pedis artery = 162mmHg. Left digit = 148 mmHg. Right Segmental Pressures Right brachial= 159mmHg. Right posterior tibial artery = 149mmHg. Right dorsalis pedis artery = 142mmHg. Right digit = 141 mmHg. Indices The right ankle brachial index by the posterior tibial artery is 0.94. The right ankle brachial index by the dorsalis pedis is 0.89. The right digital-brachial index is 0.89. The left ankle brachial index by the posterior tibial artery is 1.11. The left ankle brachial index by the dorsalis pedis is 1.02. The left digital-brachial index is 0.93. VL/Ankle Brachial Index Interpretation Summary Bilateral no significant stenosis and triphasic flow and NADIA 0.94 and 1.11. Ordering Physician: Jed Castañeda Referring Physician: Jed Castañeda Performed By: Jessica Ramey RDCS/RVT
--- NOTE | 2020-09-24 08:54 | AAVD_ITS ---
Reason For Study: Atherosclerosis Aorta Measurements Aorta Doppler Measurements Proximal aorta measures1.05cm x 0.90cm. in cross- Peak systolic flow velocities within the proximal sectional axis. aorta measure 83 cm/sec. Proximal aorta measures0.99cm. in longitudinal Peak systolic flow velocities within the mid aorta axis. measure 104 cm/sec. Mid aorta measures0.95cm x 0.98cm. in cross- Peak systolic flow velocities within the distal sectional axis. aorta measure 79 cm/sec. Mid aorta measures1.01cm. in longitudinal axis. Distal aorta measures0.96cm x 1.10cm. in cross- sectional axis. Distal aorta measures1.01cm. in longitudinal axis. Left Iliac Artery Left iliac artery measures 0.81cm x 0.87 cm. in the cross-sectional axis. Left iliac artery measures 0.77 cm. in the longitudinal axis. Peak systolic velocity in the left iliac artery measures 180 cm/sec. Right Iliac Artery Right iliac artery measures 0.89cm x 0.83 cm. in the cross-sectional axis. Right iliac artery measures 0.91 cm. in the longitudinal axis. Peak systolic velocity in the right iliac artery measures 477 cm/sec. Procedure Aorta IVC Iliac vasculature or bypass grafts [id number]. Exam performed in department. VL/Abd Aortic/IVC Duplex scan Interpretation Summary Aortic and left iliac with no stenosis. Right common iliac severe stenosis. Ordering Physician: Jed Castañeda Referring Physician: Iftikhar Carpenter Performed By: Jessica Ramey, DANNI, RVT
--- NOTE | 2020-09-24 08:54 | ADUL_ITS ---
Reason For Study: Atherosclerosis Right Velocities Ext. Iliac Artery, dist = 76 cm./sec. Common Femoral Artery, mid = 109 cm./sec. Supf Femoral Artery, prox = 67 cm./sec. Supf Femoral Artery, mid = 89 cm./sec. Supf Femoral Artery, dist. = 67 cm./sec. Profunda Femoral Artery = 117 cm./sec. Popliteal Artery, prox. = 60 cm./sec. Popliteal Artery, mid = 50 cm./sec. Popliteal Artery, dist = 50 cm./sec. Post. Tibial Artery, prox = 53 cm./sec. Post. Tibial Artery, mid = 48 cm./sec. Post. Tibial Artery, dist = 57 cm./sec. Peroneal Artery, prox = 27 cm./sec. Peroneal Artery, mid = 28 cm./sec. Peroneal Artery,dist = 22 cm./sec. Ant. Tibial Artery, prox = 30 cm./sec. Ant. Tibial Artery, mid = 26 cm./sec. Ant. Tibial Artery, dist = 25 cm./sec. Procedure Exam performed in department. /US Art Duplex Unilat Lower Ext Interpretation Summary Right leg with no stenosis and triphasic flow throughout. Ordering Physician: Jed Castañeda Referring Physician: Iftikhar Carpenter Performed By: Jessica Ramey, DANNI, RVT
== END ==
PROVIDERS: PCP Family Medicine; Referring Provider Surgery Vascular Surgery; Visit Provider Surgery Vascular Surgery
DX: Z48.812 Encounter for surgical aftercare following surgery on the circulatory system (principal); I74.09 Other arterial embolism and thrombosis of abdominal aorta; I70.213 Atherosclerosis of native arteries of extremities with intermittent claudication, bilateral legs
CPT/HCPCS: 93922; 93926; 93978

== ENCOUNTER → 2020-10-31 12:44 | Outpatient (CLI) | payer MEDICAID, SELFPAY ==
[2019-12-10 07:49] VITALS: BMI 29.8
--- NOTE | 2020-10-31 12:54 | BI_ITS ---
MAMMOGRAPHY - BILATERAL SCREENING 3-D TOMOSYNTHESIS REASON FOR EXAM: Female, 60 years old. SCREENING PERTINENT HISTORY: No significant family history. TECHNIQUE: 2-D mammograms and 3-D Tomosynthesis of the breast (s) were performed. CAD was performed. COMPARISON: 04/28/2018 FINDINGS: The breast composition is heterogeneously dense that can obscure small breast masses. Scattered benign calcifications are seen. No dense spiculated masses or suspicious microcalcifications are identified. No architectural distortion is identified. There is no skin thickening or retraction. There has been no significant change since the prior study. BI/SCRN MAMM (CAD)W/KACI BILAT IMPRESSION: No mammographic signs of malignancy. Routine yearly mammograms recommended. ASSESSMENT CATEGORY: BIRADS Category 2: Benign. A letter regarding these results will be sent to the patient by the facility within 30 days. FOLLOW UP RECOMMENDATION: Yearly follow up mammogram recommended. (A) Approximately 10% of breast cancers are not detected by mammography. A normal mammogram should not delay biopsy of a clinically suspicious abnormality. Electronically Signed: Lamin Reich MD at 14:22 EDT , Service support ,
== END ==
PROVIDERS: PCP Family Medicine; Referring Provider Family Medicine; Visit Provider Family Medicine
DX: Z12.31 Encounter for screening mammogram for malignant neoplasm of breast (principal)
CPT/HCPCS: 77063; 77067

== ENCOUNTER → 2020-12-04 12:47 | Outpatient (CLI) | payer MEDICAID, SELFPAY ==
[2019-12-10 07:49] VITALS: BMI 29.8
--- NOTE | 2020-12-04 12:58 | CT_ITS ---
STUDY: CT BRAIN WITHOUT CONTRAST REASON FOR EXAM: Female, 60 years old. persistent dizziness depite PT for BPV. RADIATION DOSAGE (If Supplied By Facility): CTDIvol = ( 38.43 ) mGy, DLP = ( 727.10 ) mGycm TECHNIQUE: Transaxial CT imaging of the brain was performed without administration of intravenous contrast material. Individualized dose optimization techniques were used for this CT. COMPARISON: 02/28/2017 FINDINGS: Normal soft tissue structures. Normal calvarium. Normal size ventricles and extra-axial spaces for the patient''s age. Normal white matter tracts of the cerebral hemispheres. Normal basal ganglia and thalami. Normal brainstem. Normal cerebellum. There is no intracranial hemorrhage. There are no findings of an acute ischemic infarction. Normal visualized paranasal sinuses. CT/Brain/Head without Contrast IMPRESSION: Normal unenhanced CT scan of the brain. Electronically Signed: Sae Courtney MD at 14:52 EDT Tel , Service support ,
== END ==
PROVIDERS: PCP Family Medicine; Referring Provider Family Medicine; Visit Provider Family Medicine
DX: R42 Dizziness and giddiness (principal)
CPT/HCPCS: 70450

== ENCOUNTER → 2021-02-05 10:00 | Outpatient (CLI) | payer MEDICAID, SELFPAY ==
[2021-02-05 12:49] LABS: Microalbumin,Random Urine 20.2 mg/L (NO RANGE EST.); Microalbumin:Creatinine Ratio 9.7 mg/g CRE (<30 mg/g CRE)
[2021-02-05 12:54] LABS: ALB/GLOB Ratio 1.1 RATIO (0.9-2.4); AST(SGOT) 16 U/L (15-37); Alanine Aminotransfer ALT/SGPT 21 U/L (13-56); Albumin, Serum 3.4 g/dL (3.2-5.0); Alkaline Phosphatase 70 U/L (45-117); Anion Gap 5 (5-15); BUN 14 mg/dL (7-18); BUN/Creat Ratio 16.1 RATIO (10-20); Calcium,Total 8.6 mg/dL (8.5-10.1); Chloride 106 mmol/L (98-107); Cholesterol 152 mg/dL (200); Creatinine, Serum 0.87 mg/dL (0.55-1.02); EST Glomerular Filtration Rate 71 mL/min (>60); Est Glom Filt Rate - Afr Amer 85 mL/min (>60); Globulin 3.1 g/dL (2.2-4.2); Glucose 139 mg/dL (74-106); High Density Lipoprotein 61 mg/dL; Protein, Total 6.5 g/dL (6.4-8.2); Sodium Level 138 mmol/L (136-145); T4 Free Direct 1.38 ng/dL (0.76-1.46); Thyroid Stim Hormone (TSH) 0.73 uIU/mL (0.358-3.74); Triglycerides 68 mg/dL; Very Low Density Lipoprotein 14 mg/dL (5-40)
[2021-02-05 13:00] LABS: Hemoglobin A1c 5.7 % (3.8-5.6)
== END ==
PROVIDERS: PCP Family Medicine; Visit Provider Internal Medicine Endocrinology, Diabetes & Metabolism
DX: E10.65 Type 1 diabetes mellitus with hyperglycemia (principal); E03.9 Hypothyroidism, unspecified; E55.9 Vitamin D deficiency, unspecified; Z86.73 Personal history of transient ischemic attack (TIA), and cerebral infarction without residual deficits; Z95.1 Presence of aortocoronary bypass graft
CPT/HCPCS: 36415; 80053; 80061; 82043; 82570; 83036; 84439; 84443

== ENCOUNTER → 2021-06-04 09:39 | Outpatient (CLI) | payer MEDICAID, SELFPAY ==
[2021-06-04 11:23] LABS: Hemoglobin A1c 5.4 % (3.8-5.6)
[2021-06-04 11:34] LABS: ALB/GLOB Ratio 1.1 RATIO (0.9-2.4); AST(SGOT) 13 U/L (15-37); Alanine Aminotransfer ALT/SGPT 18 U/L (13-56); Albumin, Serum 3.2 g/dL (3.2-5.0); Alkaline Phosphatase 57 U/L (45-117); Anion Gap 9 (5-15); BUN 13 mg/dL (7-18); BUN/Creat Ratio 15.6 RATIO (10-20); Calcium,Total 8.8 mg/dL (8.5-10.1); Chloride 109 mmol/L (98-107); Creatinine, Serum 0.84 mg/dL (0.55-1.02); EST Glomerular Filtration Rate 74 mL/min (>60); Est Glom Filt Rate - Afr Amer 89 mL/min (>60); Free T3 2.3 pg/mL (2.18-3.98); Glucose 185 mg/dL (74-106); Potassium 3.7 mmol/L (3.5-5.1); Protein, Total 6.2 g/dL (6.4-8.2); Sodium Level 140 mmol/L (136-145); T4 Free Direct 1.32 ng/dL (0.76-1.46); Thyroid Stim Hormone (TSH) 0.99 uIU/mL (0.358-3.74)
== END ==
PROVIDERS: PCP Family Medicine; Referring Provider Family Medicine; Visit Provider Internal Medicine Endocrinology, Diabetes & Metabolism
DX: E10.65 Type 1 diabetes mellitus with hyperglycemia (principal); E03.9 Hypothyroidism, unspecified; E55.9 Vitamin D deficiency, unspecified; Z86.73 Personal history of transient ischemic attack (TIA), and cerebral infarction without residual deficits; Z95.1 Presence of aortocoronary bypass graft
CPT/HCPCS: 36415; 80053; 83036; 84439; 84443; 84481

== ENCOUNTER → 2022-01-26 | Outpatient (CLI) | payer MEDICAID, SELFPAY ==
--- NOTE | 2022-01-26 08:36 | AAVD_ITS ---
Reason For Study: Stricture of artery Aorta Measurements Aorta Doppler Measurements Proximal aorta measures1.13 x 1.13cm. in cross- Peak systolic flow velocities within the proximal sectional axis. aorta measure 77.8 cm/sec. Proximal aorta measures1.11cm. in longitudinal Peak systolic flow velocities within the mid aorta axis. measure 68.7 cm/sec. Mid aorta measures1.00 x 1.00cm. in cross- Peak systolic flow velocities within the distal sectional axis. aorta measure 123.5 cm/sec. Mid aorta measures0.97cm. in longitudinal axis. Distal aorta measures0.93 x 0.93cm. in cross- sectional axis. Distal aorta measures0.94cm. in longitudinal axis. Left Iliac Artery Left iliac artery measures 0.64 x 0.62 cm. in the cross-sectional axis. Left iliac artery measures 0.61 cm. in the longitudinal axis. Peak systolic velocity in the left iliac artery measures 190.7 cm/sec. Right Iliac Artery Right iliac artery measures 0.61 x 0.62 cm. in the cross-sectional axis. Right iliac artery measures 0.59 cm. in the longitudinal axis. Peak systolic velocity in the right iliac artery measures 208.9 cm/sec. Procedure Aorta IVC Iliac vasculature or bypass grafts [id number]. Exam performed in department. VL/Abd Aortic/IVC Duplex scan Interpretation Summary No evidence of aortic iliac stenosis or aneurysm. Ordering Physician: Jed Castañeda Referring Physician: Iftikhar Carpenter MD Performed By: Jessi Durham RVT
--- NOTE | 2022-01-26 08:37 | ART_ITS ---
Reason For Study: Atherosclerosis Procedure A bilateral lower extremity continuous wave Doppler with analog waveform analysis and ankle brachial indexes. Left Segmental Pressures Left brachial= 161mmHg. Left posterior tibial artery = 159mmHg. Left dorsalis pedis artery = 119mmHg. Left digit = 104 mmHg. The left dorsalis pedis waveforms are biphasic. The left posterior tibial artery waveforms are triphasic. Right Segmental Pressures Right brachial= 163mmHg. Right posterior tibial artery = 175mmHg. Right dorsalis pedis artery = 121mmHg. Right digit = 124 mmHg. The right dorsalis pedis waveforms are biphasic. The right posterior tibial artery waveforms are triphasic. Indices The right ankle brachial index by the dorsalis pedis is 0.74. The right ankle brachial index by the posterior tibial artery is 1.07. The right digital-brachial index is 0.76. The left ankle brachial index by the dorsalis pedis is 0.73. The left ankle brachial index by the posterior tibial artery is 0.98. The left digital-brachial index is 0.64. VL/Ankle Brachial Index Interpretation Summary Bilateral lower extremities no evidence of significant occlusive disease at res t. With an NADIA 1.07 on the right and 0.98 on the left. Bilateral triphasic flow noted at the ankle. Digit brachial index of 0.76 and 0.64. Ordering Physician: Jed Castañeda Referring Physician: Iftikhar Carpenter MD Performed By: Jessi Durham RVT
== END | disposition home or self-care (01) ==
LOC: CVS 08:35
PROVIDERS: PCP Family Medicine; Visit Provider Surgery Vascular Surgery
DX: Z48.812 Encounter for surgical aftercare following surgery on the circulatory system (principal); I74.09 Other arterial embolism and thrombosis of abdominal aorta; I77.1 Stricture of artery; I70.213 Atherosclerosis of native arteries of extremities with intermittent claudication, bilateral legs
CPT/HCPCS: 93922; 93978

== ENCOUNTER → 2023-01-18 | Outpatient (CLI) | payer MEDICAID, SELFPAY ==
--- NOTE | 2023-01-18 13:46 | BI_ITS ---
MAMMOGRAPHY - BILATERAL SCREENING REASON FOR EXAM: Female, 62 years old. Routine annual screening examination. PERTINENT HISTORY: Non-contributory. TECHNIQUE: Digital bilateral breast kaci (3D mammographic acquisition) in the CC and MLO projections. 2-D mediolateral oblique (MLO) and craniocaudad (CC) views of both breasts were obtained. CAD: Full Field Digital Mammography with Computer Added Detection was performed. COMPARISON: Comparison is made with prior study dated October 31, 2020 and October 31, 2019. FINDINGS: Breast Composition: The breasts are heterogeneously dense, which may obscure small masses. There are no dominant masses or suspicious calcifications. No other significant abnormalities are identified. There has been no significant change since the prior study. BI/SCRN MAMM (CAD)W/KACI BILAT IMPRESSION: Stable bilateral screening mammogram. Yearly follow-up mammogram recommended. (A) ASSESSMENT CATEGORY: BIRADS Category 1: Negative. A letter regarding these results will be sent to the patient by the facility within 30 days. Approximately 10% of breast cancers are not detected by mammography. A normal mammogram should not delay biopsy of a clinically suspicious abnormality. [id number] Electronically Signed: Walker Ceballos MD at 14:55 EDT ,
== END | disposition home or self-care (01) ==
LOC: OPBI 13:44
PROVIDERS: PCP Family Medicine; Referring Provider Family Medicine; Visit Provider Family Medicine
DX: Z12.31 Encounter for screening mammogram for malignant neoplasm of breast (principal)
CPT/HCPCS: 77063; 77067

== ENCOUNTER → 2023-03-08 | Outpatient (CLI) | payer MEDICAID, SELFPAY ==
--- NOTE | 2023-03-08 08:31 | AAVD_ITS ---
Reason For Study: Aftercare Aorta Measurements Aorta Doppler Measurements Proximal aorta measures1.63 x 1.62cm. in cross- Peak systolic flow velocities within the proximal sectional axis. aorta measure 65.8 cm/sec. Proximal aorta measures1.67cm. in longitudinal Peak systolic flow velocities within the mid aorta axis. measure 76.0 cm/sec. Mid aorta measures1.22 x 1.31cm. in cross- sectional axis. Mid aorta measures1.33cm. in longitudinal axis. Unable to visualize distal AO due to bowel gas. Left Iliac Artery Left iliac artery measures 0.60 x 0.58 cm. in the cross-sectional axis. Left iliac artery measures 0.52 cm. in the longitudinal axis. Peak systolic velocity in the left iliac artery measures 67.1 cm/sec. Right Iliac Artery Right iliac artery measures 0.66 x 0.65 cm. in the cross-sectional axis. Right iliac artery measures 0.64 cm. in the longitudinal axis. Peak systolic velocity in the right iliac artery measures 124.2 cm/sec. Procedure Aorta IVC Iliac vasculature or bypass grafts [id number]. Exam performed in department. VL/Abd Aortic/IVC Duplex scan Interpretation Summary No aortoiliacaneurysm or stenosis. Ordering Physician: Jed Castañeda Referring Physician: Iftikhar Carpenter MD Performed By: Julio César Temple RVT
--- NOTE | 2023-03-08 08:31 | ART_ITS ---
Reason For Study: Aftercare Procedure A bilateral lower extremity continuous wave Doppler with analog waveform analysis and ankle brachial indexes. Left Segmental Pressures Left brachial= 140mmHg. Left posterior tibial artery = 113mmHg. Left dorsalis pedis artery = 87mmHg. Left digit = 97 mmHg. The left posterior tibial artery waveforms are biphasic. The left dorsalis pedis waveforms are biphasic. Right Segmental Pressures Right brachial= 136mmHg. Right posterior tibial artery = 157mmHg. Right dorsalis pedis artery = 140mmHg. Right digit = 135 mmHg. The right posterior tibial artery waveforms are triphasic. The right dorsalis pedis waveforms are triphasic. Indices The right ankle brachial index by the posterior tibial artery is 1.12. The right ankle brachial index by the dorsalis pedis is 1.00. The right digital-brachial index is 0.96. The left ankle brachial index by the posterior tibial artery is 0.81. The left ankle brachial index by the dorsalis pedis is 0.62. The left digital-brachial index is 0.69. VL/Ankle Brachial Index Interpretation Summary Right normal at rest with NADIA 1.12 and triphasic. LEft biphasic and mild diseas e with NADIA 0.81. Digits 0.9 and 0.69. Ordering Physician: Jed Castañeda Referring Physician: Iftikhar Carpenter MD Performed By: Julio César Temple RVT
== END | disposition home or self-care (01) ==
PROVIDERS: PCP Family Medicine; Referring Provider Surgery Vascular Surgery; Visit Provider Surgery Vascular Surgery
DX: Z48.812 Encounter for surgical aftercare following surgery on the circulatory system (principal); I74.09 Other arterial embolism and thrombosis of abdominal aorta; I77.1 Stricture of artery; I70.213 Atherosclerosis of native arteries of extremities with intermittent claudication, bilateral legs
CPT/HCPCS: 93922; 93978

== ENCOUNTER → 2023-05-30 | Outpatient (CLI) | payer MEDICAID, SELFPAY ==
--- NOTE | 2023-05-30 14:25 | RAD_ITS ---
STUDY: X-RAY CHEST REASON FOR EXAM: Female, 62 years old. Systemic inflammatory response syndrome TECHNIQUE: PA and lateral views of the chest. COMPARISON: Comparison is made with prior study dated May 10, 2015. FINDINGS: Hyperinflation. Stable mild scarring at the lung bases. There is no demonstrated pleural abnormality. Sternal cerclage wires are present from a prior sternotomy. The patient is status post aortic valve replacement. Normal mediastinum and miles. Normal visualized pulmonary arteries. Normal visualized aortic arch and descending thoracic aorta. Normal visualized thoracic spine. Normal visualized ribs, clavicles, and shoulders. A filter is seen in the inferior vena cava. RAD/Chest PA and Lateral IMPRESSION: Hyperinflation. No acute abnormality is seen. Electronically Signed: Walker Ceballos MD at 14:54 EST ,
[2023-05-30 18:11] LABS: Basophil% 0.4 % (0-1); Hematocrit 49.2 % (37-47); Lymphocyte % 3.4 % (19-41); Mean Corp Hgb Conc 32.5 g/dL (32-36); Mean Corpuscular Hgb 29.6 pg (27.0-32.0); Mean Corpuscular Volume 90.9 fL (81-99); Mean Platelet Vol. 11.3 fl (6.2-12.0); Monocyte% 8.4 % (0-10); Neutrophil % 87.1 % (47-70); POSITIVE DIFFERENTIAL YES; Platelet Count 158 K/mm3 (150-450); RBC Distribution Width CV 13.3 % (11.6-14.6); RBC Distribution Width SD 44.2 fl (35.1-43.9); Red Blood Count 5.41 M/mm3 (4.2-5.4); White Blood Count 13.1 K/mm3 (4.4-11.0)
[2023-05-30 18:12] LABS: Absolute Lymphocyte Count 0.45 X10^3/uL (0.83-4.51); Absolute Neutrophil Count 11.4 X10^3/uL (2.0-7.7); Basophil# 0.05 X10^3/uL; Lymphocyte # 0.45 X10^3/ul (0.83-4.51); Monocyte# 1.11 X10^3/uL; NRBC Flagged by Analyzer 0 % (0-5); Neutrophil # 11.44 X10^3/uL (2.7-7.7)
[2023-05-30 18:28] LABS: ALB/GLOB Ratio 0.9 RATIO (0.9-2.4); AST(SGOT) 31 U/L (15-37); Alanine Aminotransfer ALT/SGPT 33 U/L (13-56); Albumin, Serum 3.8 g/dL (3.2-5.0); Alkaline Phosphatase 56 U/L (45-117); Anion Gap 8 (5-15); BUN 22 mg/dL (7-18); BUN/Creat Ratio 20.2 RATIO (10-20); Chloride 100 mmol/L (98-107); Creatinine, Serum 1.09 mg/dL (0.55-1.02); EST Glomerular Filtration Rate 54 mL/min (>60); Est Glom Filt Rate - Afr Amer 65 mL/min (>60); Globulin 4.1 g/dL (2.2-4.2); Glucose 128 mg/dL (74-106); Potassium 3.3 mmol/L (3.5-5.1); Protein, Total 7.9 g/dL (6.4-8.2); Sodium Level 137 mmol/L (136-145)
[2023-05-30 18:32] LABS: Differential Indicated SCAN CRITERIA MET
[2023-05-30 18:40] LABS: Anisocytosis RARE; Macrocytosis RARE; Platelet Estimate ADEQUATE (ADEQ); Red Cell Morphology N CHROM NORMAL (NORM C&C)
== END | disposition home or self-care (01) ==
LOC: MTLAB 14:22
PROVIDERS: PCP Family Medicine; Referring Provider Family Medicine; Visit Provider Family Medicine
DX: R65.10 Systemic inflammatory response syndrome (SIRS) of non-infectious origin without acute organ dysfunction (principal); Z87.01 Personal history of pneumonia (recurrent)
CPT/HCPCS: 36415; 71046; 80053; 85025; 86140

== ENCOUNTER → 2024-03-13 | Outpatient (CLI) | payer MEDICAID, SELFPAY ==
--- NOTE | 2024-03-13 08:38 | AAVD_ITS ---
Reason For Study: Aftercare, s/p B/L Iliac Stents Aorta Measurements Aorta Doppler Measurements Proximal aorta measures1.59cm x 1.40cm. in cross- Peak systolic flow velocities within the proximal sectional axis. aorta measure 72 cm/sec. Proximal aorta measures1.52cm. in longitudinal Peak systolic flow velocities within the mid aorta axis. measure 63 cm/sec. Mid aorta measures1.05cm x 1.05cm. in cross- Peak systolic flow velocities within the distal sectional axis. aorta measure 74 cm/sec. Mid aorta measures1.04cm. in longitudinal axis. Distal aorta measures1.21cm x 1.23cm. in cross- sectional axis. Distal aorta measures1.21cm. in longitudinal axis. Left Iliac Artery Left iliac artery measures 0.89cm x 1.07 cm. in the cross-sectional axis. Left iliac artery measures 0.88 cm. in the longitudinal axis. Peak systolic velocity in the left iliac artery measures 72 cm/sec. Right Iliac Artery Right iliac artery measures 1.09cm x 0.89 cm. in the cross-sectional axis. Right iliac artery measures 1.16 cm. in the longitudinal axis. Peak systolic velocity in the right iliac artery measures 87 cm/sec. Procedure Aorta IVC Iliac vasculature or bypass grafts [id number]. Exam performed in department. VL/Abd Aortic/IVC Duplex scan Interpretation Summary No aortoiliac stenosis or aneurysm. Ordering Physician: Jed Castañeda Referring Physician: Iftikhar Carpenter Performed By: Jessica Ramey, DANNI, RVT
--- NOTE | 2024-03-13 08:38 | ART_ITS ---
Reason For Study: Aftercare, s/p B/L Iliac Stents Procedure A bilateral lower extremity continuous wave Doppler with analog waveform analysis and ankle brachial indexes. Left Segmental Pressures Left brachial= 154mmHg. Left posterior tibial artery = 126mmHg. Left dorsalis pedis artery = 96mmHg. Left digit = 94 mmHg. Right Segmental Pressures Right brachial= 159mmHg. Right posterior tibial artery = 169mmHg. Right dorsalis pedis artery = 157mmHg. Right digit = 111 mmHg. Indices The right ankle brachial index by the posterior tibial artery is 1.06. The right ankle brachial index by the dorsalis pedis is 0.99. The right digital-brachial index is 0.70. The left ankle brachial index by the posterior tibial artery is 0.79. The left ankle brachial index by the dorsalis pedis is 0.60. The left digital-brachial index is 0.59. VL/Ankle Brachial Index Interpretation Summary Right NADIA _, normal. The left resting ankle-brachial index appears moderately a bnormal. Ordering Physician: Jed Castañeda Referring Physician: Iftikhar Carpenter Performed By: Jessica Ramey RDCS/RVT
== END | disposition home or self-care (01) ==
LOC: CVS 08:33
PROVIDERS: PCP Family Medicine; Referring Provider Surgery Vascular Surgery; Visit Provider Surgery Vascular Surgery
DX: Z48.812 Encounter for surgical aftercare following surgery on the circulatory system (principal); I74.09 Other arterial embolism and thrombosis of abdominal aorta; I77.1 Stricture of artery; I70.213 Atherosclerosis of native arteries of extremities with intermittent claudication, bilateral legs
CPT/HCPCS: 93922; 93978

== ENCOUNTER → 2024-09-12 | Outpatient (CLI) | payer MEDICAID, SELFPAY ==
[2024-09-12 18:13] LABS: Anion Gap 10 (5-15); BUN 20 mg/dL (4-19); BUN/Creat Ratio 17.1 RATIO (10-20); Calcium,Total 9.3 mg/dL (7.6-11.0); Carbon Dioxide 28.9 mmol/L (21.0-32.0); Chloride 99 mmol/L (98-108); Creatinine, Serum 1.16 mg/dL (0.70-1.20); EST Glomerular Filtration Rate 53 (>60); Glucose 218 mg/dL (70-99); Potassium 3.7 mmol/L (3.3-5.1); Sodium Level 138 mmol/L (133-145)
== END | disposition home or self-care (01) ==
LOC: MFPLAB 14:52
PROVIDERS: PCP Family Medicine; Referring Provider Nurse Practitioner Family; Visit Provider Nurse Practitioner Family
DX: N17.9 Acute kidney failure, unspecified (principal)
CPT/HCPCS: 36415; 80048